=== PATIENT | male | born 1975 | race Caucasian/White ===

== ENCOUNTER → 2016-08-13 | Outpatient (CLI) | payer OTHER ==
[~2016-08-13] MED LIST: AUGMENTIN 875 M1 TA1 PO; CIPRODEX 0.3%-7.5 M1 OT; CYMBALTA30 MG PO; DAYPRO600 M1 PO; DOXYCYCLINE MO100 MG PO; FLEXERIL10 MG PO; MEDROL DOSEPAK4 MG PO; MOTRIN800 MG PO; NAPROSYN500 MG PO; NKHM; PREDNICOT20 MG PO; ROBITUSSIN AC 110 ML PO; ROBITUSSIN-AC480 ML PO; VICODIN 5/500 505 MG PO; Zofran4 MG PO
== END | disposition home or self-care (01) ==
LOC: MRI 07:16
DX: M25.412 Effusion, left shoulder (principal); M25.411 Effusion, right shoulder; M75.52 Bursitis of left shoulder; M75.51 Bursitis of right shoulder; M65.812 Other synovitis and tenosynovitis, left shoulder; M65.811 Other synovitis and tenosynovitis, right shoulder; M48.02 Spinal stenosis, cervical region; M50.30 Other cervical disc degeneration, unspecified cervical region; R20.0 Anesthesia of skin; M25.78 Osteophyte, vertebrae

== ENCOUNTER 2016-11-09 08:44 | Emergency (ER) | payer OTHER ==
[~2016-11-09] VITALS: Ht 180.3 cm; Wt 80.7 kg
[2016-11-09] MEDS ORDERED: CYMBALTA60 MG PO (08:50)
[2016-11-09] MEDS ORDERED: TRAZODONE50 MG PO (08:50)
[2016-11-09] MEDS ORDERED: BACTRIM DS 8001 TA1 PO (09:13)
== END 2016-11-09 09:14 | disposition home or self-care (01) ==
LOC: ED 08:44
DX: L02.416 Cutaneous abscess of left lower limb (principal); Z79.899 Other long term (current) drug therapy

== ENCOUNTER 2016-11-27 22:20 | Emergency (ER) | payer OTHER ==
[~2016-11-27] VITALS: Ht 180.3 cm; Wt 80.7 kg
[~2016-11-27 22:20] MED LIST changes: +BACTRIM DS 8001 TA1 PO; +CYMBALTA60 MG PO; +TRAZODONE50 MG PO
[2016-11-27] MEDS ORDERED: DOXYCYCLINE100 M3 PO (23:03)
[2016-11-27] MEDS ORDERED: NORCO 5-325 TA1 EACH PO (23:03)
== END 2016-11-27 23:40 | disposition home or self-care (01) ==
LOC: ED 22:20
DX: L02.416 Cutaneous abscess of left lower limb (principal); Z79.899 Other long term (current) drug therapy